=== PATIENT | female | born 1965 | race Caucasian/White ===

== ENCOUNTER → 2017-03-04 | Outpatient (CLI) | payer BC ==
[~2017-03-04] MED LIST: ALLEGRA180 MG PO; AMITIZA8 MCG PO; AMOXICILLIN500 MG PO; AUGMENTIN 875875 MG PO; CIPROFLOXACIN500 MG PO; CORDROL20 MG PO; DARVOCET N 1001 TAB PO; DIFLUCAN150 MG PO; ERGOCALCIFER50000 IU PO; FLAGYL500 MG; FLUTICASON0.05 MG/AC NAS; HYDROCHLOROTHIA25 MG PO; HYDROCODONE BIT1 T11 PO; KETOROLAC10 MG PO; LEXAPRO10 MG PO; LEXAPRO5 MG; MACROBID100 M1 PO; MICROZIDE12.5 MG; MOTRIN800 MG PO; Motrin,Rufen800 MG PO; NAPROSYN500 MG PO; NORCO 5-325 TA1 EACH PO; NORTRIPTYLINE10 MG PO; OSCAL/D,OYSTER250 MG PO; PERCOCET 325 MG1 TA2 PO; PERCOCET 325 MG1 TA5 PO; POTASS CHL20 MEQ/15 PO; PRILOSEC10 MG; PRILOSEC20 M1 PO; PROCTOFOAM-HC 110 G1 PO; TRAZADONE HYDR100 MG PO; VICODIN 5/500 505 MG PO; VICODIN ES 7501 TAB PO; ZESTRIL2.5 MG PO
== END | disposition home or self-care (01) ==
LOC: MAMMO 08:49
DX: R92.8 Other abnormal and inconclusive findings on diagnostic imaging of breast (principal)

== ENCOUNTER → 2017-08-21 | Outpatient (CLI) | payer BC ==
[2017-08-21 08:11] LABS: BASO % 0.4 % (0.0-1.0); EOS # 0.2 10*3/uL (0.0-0.4); EOS % 2.9 % (1.0-4.0); HEMATOCRIT 42.7 % (37.0-47.0); HEMOGLOBIN 13.5 g/dl (12.0-16.0); LYMPH # 2.7 10*3/uL (1.3-4.4); LYMPH % 34.6 % (27.0-41.0); MEAN CELL VOLUME 88.6 fl (81.0-99.0); MEAN CORPUSCULAR HGB CONC 31.6 g/dl (33.0-37.0); MEAN PLATELET VOLUME 10.5 fl (9.6-12.3); MONO # 0.7 10*3/uL (0.1-1.0); MONO % 8.3 % (3.0-9.0); NEUT # 4.2 10*3/uL (2.3-7.9); NEUT % 53.3 % (47.0-73.0); PLATELET COUNT AUTOMATED 244 10*3/uL (130-400); RED BLOOD COUNT 4.82 10*6/uL (4.10-5.10); RED CELL DISTRI WIDTH 13.9 % (0-14.5); WHITE BLOOD COUNT 7.8 10*3/uL (4.8-10.8)
[2017-08-21 08:37] LABS: ALBUMIN 3.6 gm/dl (3.1-4.5); ALKALINE PHOSPHATASE 116 U/L (45-117); BUN 11 mg/dl (7-24); CHLORIDE 104 mmol/L (98-107); CHOLESTEROL 225 mg/dL (<200); CREATININE 0.76 mg/dL (0.55-1.02); HDL CHOLESTEROL 58 mg/dl (40-60); LDL CHOLESTEROL 132 mg/dL (9-159); POTASSIUM 3.7 mmol/L (3.5-5.1); SGOT/AST 18 IU/L (3-35); SGPT/ALT 22 U/L (12-78); SODIUM 141 mmol/L (136-145); TOTAL PROTEIN 7.2 gm/dL (6.4-8.2); TRIGLYCERIDES 174 mg/dl (<150); VLDL CHOLESTEROL 35 mg/dL (6-40)
== END | disposition home or self-care (01) ==
LOC: LAB 07:48
PROVIDERS: Nurse Practitioner Primary Care
DX: E78.00 Pure hypercholesterolemia, unspecified (principal); E55.9 Vitamin D deficiency, unspecified; I10 Essential (primary) hypertension

== ENCOUNTER 2018-06-23 08:34 | Emergency (ER) | payer BC ==
[~2018-06-23] VITALS: Ht 157.4 cm; Wt 99.8 kg
[2018-06-23] MEDS ORDERED: PREDNISONE10 MG PO (11:38)
[2018-06-23] MEDS ORDERED: PEPCID20 MG PO (11:38)
== END 2018-06-23 11:42 | disposition home or self-care (01) ==
LOC: ED 08:34
DX: T78.2XXA Anaphylactic shock, unspecified, initial encounter (principal); J30.81 Allergic rhinitis due to animal (cat) (dog) hair and dander; Z90.710 Acquired absence of both cervix and uterus; Z88.1 Allergy status to other antibiotic agents; Z88.2 Allergy status to sulfonamides; Z88.8 Allergy status to other drugs, medicaments and biological substances; Z79.899 Other long term (current) drug therapy; Z90.49 Acquired absence of other specified parts of digestive tract

== ENCOUNTER 2018-11-28 05:43 | Emergency (ER) | payer BC ==
[~2018-11-28] VITALS: Ht 157.4 cm; Wt 97.5 kg
[~2018-11-28 05:43] MED LIST changes: +PEPCID20 MG PO; +PREDNISONE10 MG PO
[2018-11-28] MEDS ORDERED: TYLENOL325 M1 PO (07:17)
[2018-11-28] MEDS ORDERED: NAPROSYN500 MG PO (07:17)
== END 2018-11-28 07:36 | disposition home or self-care (01) ==
LOC: ED 05:43
DX: M25.511 Pain in right shoulder (principal); M19.90 Unspecified osteoarthritis, unspecified site; Z88.1 Allergy status to other antibiotic agents; Z88.2 Allergy status to sulfonamides; Z88.8 Allergy status to other drugs, medicaments and biological substances; Z79.899 Other long term (current) drug therapy; X58.XXXA Exposure to other specified factors, initial encounter; Y93.89 Activity, other specified; Y92.89 Other specified places as the place of occurrence of the external cause; Y99.0 Civilian activity done for income or pay

== ENCOUNTER → 2019-01-12 | Outpatient (CLI) | payer BC ==
[~2019-01-12] MED LIST changes: +TYLENOL325 M1 PO
== END | disposition home or self-care (01) ==
LOC: RESCLI 02:20
DX: E55.9 Vitamin D deficiency, unspecified (principal); I10 Essential (primary) hypertension; F32.89 Other specified depressive episodes; J30.1 Allergic rhinitis due to pollen; K59.00 Constipation, unspecified; E78.5 Hyperlipidemia, unspecified; K21.9 Gastro-esophageal reflux disease without esophagitis; G44.209 Tension-type headache, unspecified, not intractable; J32.9 Chronic sinusitis, unspecified; Z79.899 Other long term (current) drug therapy

== ENCOUNTER → 2019-02-18 | Outpatient (CLI) | payer BC | END | disposition home or self-care (01) | LOC: RESCLI 00:28 | DX: I10 Essential (primary) hypertension (principal); F32.89 Other specified depressive episodes; E55.9 Vitamin D deficiency, unspecified; E78.5 Hyperlipidemia, unspecified; K21.9 Gastro-esophageal reflux disease without esophagitis; J45.909 Unspecified asthma, uncomplicated; G44.209 Tension-type headache, unspecified, not intractable; Z79.899 Other long term (current) drug therapy; Z88.8 Allergy status to other drugs, medicaments and biological substances; Z90.89 Acquired absence of other organs; Z90.49 Acquired absence of other specified parts of digestive tract ==

== ENCOUNTER → 2019-04-28 | Outpatient (CLI) | payer BC ==
[2019-04-28 19:32] LABS: BASO % 0.2 % (0.0-1.0); EOS # 0.2 10*3/uL (0.0-0.4); EOS % 1.7 % (1.0-4.0); HEMATOCRIT 45.3 % (37.0-47.0); HEMOGLOBIN 14.4 g/dl (12.0-16.0); LYMPH # 3.1 10*3/uL (1.3-4.4); LYMPH % 32.1 % (27.0-41.0); MEAN CELL VOLUME 90.4 fl (81.0-99.0); MEAN CORPUSCULAR HGB 28.7 pg (27.0-31.0); MEAN CORPUSCULAR HGB CONC 31.8 g/dl (33.0-37.0); MEAN PLATELET VOLUME 11.4 fl (9.6-12.3); MONO # 0.7 10*3/uL (0.1-1.0); MONO % 7.2 % (3.0-9.0); NEUT # 5.6 10*3/uL (2.3-7.9); NEUT % 58.6 % (47.0-73.0); PLATELET COUNT AUTOMATED 221 10*3/uL (130-400); RED BLOOD COUNT 5.01 10*6/uL (4.10-5.10); RED CELL DISTRI WIDTH 14.2 % (0-14.5); WHITE BLOOD COUNT 9.5 10*3/uL (4.8-10.8)
[2019-04-28 20:00] LABS: ALKALINE PHOSPHATASE 131 U/L (45-117); BUN 24 mg/dl (7-24); CHLORIDE 104 mmol/L (98-107); CHOLESTEROL 168 mg/dL (<200); HDL CHOLESTEROL 76 mg/dl (40-60); LDL CHOLESTEROL 68 mg/dL (9-159); POTASSIUM 3.6 mmol/L (3.5-5.1); SGOT/AST 21 IU/L (3-35); SGPT/ALT 30 U/L (12-78); SODIUM 141 mmol/L (136-145); TOTAL PROTEIN 7.8 gm/dL (6.4-8.2); TRIGLYCERIDES 118 mg/dl (<150); VLDL CHOLESTEROL 24 mg/dL (6-40)
== END | disposition home or self-care (01) ==
LOC: RESCLI 00:49
PROVIDERS: Hospitalist
DX: Z12.39 Encounter for other screening for malignant neoplasm of breast (principal); Z12.11 Encounter for screening for malignant neoplasm of colon; I10 Essential (primary) hypertension; F32.89 Other specified depressive episodes; E55.9 Vitamin D deficiency, unspecified; E78.5 Hyperlipidemia, unspecified; K21.9 Gastro-esophageal reflux disease without esophagitis; J45.909 Unspecified asthma, uncomplicated; G44.209 Tension-type headache, unspecified, not intractable; F17.200 Nicotine dependence, unspecified, uncomplicated; M19.90 Unspecified osteoarthritis, unspecified site; R74.8 Abnormal levels of other serum enzymes; Z79.899 Other long term (current) drug therapy; Z90.49 Acquired absence of other specified parts of digestive tract; Z90.89 Acquired absence of other organs; Z90.710 Acquired absence of both cervix and uterus; Z88.8 Allergy status to other drugs, medicaments and biological substances

== ENCOUNTER → 2019-05-06 | Outpatient (CLI) | payer BC | END | disposition home or self-care (01) | LOC: CT 08:29 | DX: R74.8 Abnormal levels of other serum enzymes (principal) ==

== ENCOUNTER → 2019-05-27 | Outpatient (CLI) | payer BC | END | disposition home or self-care (01) | LOC: RESCLI 00:36 | DX: J40 Bronchitis, not specified as acute or chronic (principal); I10 Essential (primary) hypertension; Z90.89 Acquired absence of other organs; Z90.49 Acquired absence of other specified parts of digestive tract; Z88.8 Allergy status to other drugs, medicaments and biological substances; Z79.899 Other long term (current) drug therapy ==

== ENCOUNTER → 2019-11-29 | Outpatient (CLI) | payer BC | END | disposition home or self-care (01) | LOC: RESCLI 00:58 | PROVIDERS: ATTEND Internal Medicine | DX: I10 Essential (primary) hypertension (principal); K59.00 Constipation, unspecified; E78.5 Hyperlipidemia, unspecified; J45.909 Unspecified asthma, uncomplicated; F32.89 Other specified depressive episodes; K21.9 Gastro-esophageal reflux disease without esophagitis; M19.90 Unspecified osteoarthritis, unspecified site; D22.9 Melanocytic nevi, unspecified; E07.9 Disorder of thyroid, unspecified; F17.220 Nicotine dependence, chewing tobacco, uncomplicated; Z12.31 Encounter for screening mammogram for malignant neoplasm of breast; Z79.899 Other long term (current) drug therapy; Z90.710 Acquired absence of both cervix and uterus; Z90.49 Acquired absence of other specified parts of digestive tract; Z98.890 Other specified postprocedural states ==

== ENCOUNTER → 2019-12-20 | Outpatient (CLI) | payer BC | END | disposition home or self-care (01) | LOC: MAMMO 15:53 | PROVIDERS: ATTEND Internal Medicine | DX: Z12.31 Encounter for screening mammogram for malignant neoplasm of breast (principal) ==

== ENCOUNTER 2020-01-01 12:00 | Emergency (ER) | payer BC ==
[~2020-01-01] VITALS: Ht 157.4 cm; Wt 102.1 kg
[2020-01-01] MEDS ORDERED: TESSALON PERLE100 MG PO (12:45)
[2020-01-01] MEDS ORDERED: FLONASE ALLERG9.9 ML NAS (12:45)
== END 2020-01-01 12:49 | disposition home or self-care (01) ==
LOC: ED 12:00
DX: J06.9 Acute upper respiratory infection, unspecified (principal); Z20.828 Contact with and (suspected) exposure to other viral communicable diseases; Z88.8 Allergy status to other drugs, medicaments and biological substances; Z88.2 Allergy status to sulfonamides; Z79.899 Other long term (current) drug therapy; Z79.2 Long term (current) use of antibiotics

== ENCOUNTER → 2020-01-11 | Outpatient (CLI) | payer BC ==
[~2020-01-11] MED LIST changes: +FLONASE ALLERG9.9 ML NAS; +HYDROCHLOROTHIA25 M1 PO; +LEXAPRO20 MG PO; +PROAIR HFA8.5 GM INH; +TESSALON PERLE100 MG PO
== END | disposition home or self-care (01) ==
LOC: COVID19 00:12
PROVIDERS: ATTEND Surgery
DX: Z01.812 Encounter for preprocedural laboratory examination (principal); Z20.828 Contact with and (suspected) exposure to other viral communicable diseases

== ENCOUNTER 2020-01-16 21:07 | Emergency (ER) | payer BC ==
[~2020-01-16] VITALS: Ht 157.4 cm; Wt 102.1 kg
[2020-01-16 22:26] LABS: BASO % 0.2 % (0.0-1.0); HEMATOCRIT 44.1 % (37.0-47.0); LYMPH # 1.2 10*3/uL (1.3-4.4); LYMPH % 9.6 % (27.0-41.0); MEAN CELL VOLUME 86.8 fl (81.0-99.0); MEAN CORPUSCULAR HGB 28.3 pg (27.0-31.0); MEAN CORPUSCULAR HGB CONC 32.7 g/dl (33.0-37.0); MEAN PLATELET VOLUME 10.1 fl (9.6-12.3); MONO # 0.4 10*3/uL (0.1-1.0); MONO % 3.1 % (3.0-9.0); NEUT # 10.9 10*3/uL (2.3-7.9); NEUT % 86.8 % (47.0-73.0); PLATELET COUNT AUTOMATED 246 10*3/uL (130-400); RED BLOOD COUNT 5.08 10*6/uL (4.10-5.10); RED CELL DISTRI WIDTH 13.4 % (0-14.5); WHITE BLOOD COUNT 12.5 10*3/uL (4.8-10.8)
[2020-01-16 22:39] LABS: ALBUMIN 3.7 gm/dl (3.1-4.5); ALKALINE PHOSPHATASE 131 U/L (45-117); BUN 11 mg/dl (7-24); CHLORIDE 106 mmol/L (98-107); CREATININE 0.62 mg/dL (0.55-1.02); LIPASE 46 U/L (73-393); POTASSIUM 3.4 mmol/L (3.5-5.1); SGOT/AST 18 IU/L (3-35); SGPT/ALT 23 U/L (12-78); SODIUM 140 mmol/L (136-145); TOTAL PROTEIN 7.8 gm/dL (6.4-8.2)
== END 2020-01-17 01:45 | disposition home or self-care (01) ==
LOC: ED 21:07
PROVIDERS: Nurse Practitioner Family
DX: R11.2 Nausea with vomiting, unspecified (principal); R68.83 Chills (without fever); Z88.1 Allergy status to other antibiotic agents; Z88.2 Allergy status to sulfonamides; Z88.8 Allergy status to other drugs, medicaments and biological substances; Z79.899 Other long term (current) drug therapy

== ENCOUNTER → 2020-01-16 | Day surgery (SDC) | payer BC ==
[~2020-01-16] VITALS: Ht 157.4 cm; Wt 104.3 kg
[2020-01-16 07:48] VITALS: BP 189/93
[2020-01-16 09:00] VITALS: BP 147/88
[2020-01-16 09:15] VITALS: BP 149/84
[2020-01-16 09:30] VITALS: BP 152/82
== END | disposition home or self-care (01) ==
LOC: SDC 01-12 08:45
PROVIDERS: ATTEND Surgery
DX: Z12.11 Encounter for screening for malignant neoplasm of colon (principal); K21.9 Gastro-esophageal reflux disease without esophagitis; K29.50 Unspecified chronic gastritis without bleeding; K63.5 Polyp of colon; I10 Essential (primary) hypertension; J45.909 Unspecified asthma, uncomplicated; F32.9 Major depressive disorder, single episode, unspecified; Z88.8 Allergy status to other drugs, medicaments and biological substances; Z98.890 Other specified postprocedural states; Z79.899 Other long term (current) drug therapy; Z88.2 Allergy status to sulfonamides; Z98.51 Tubal ligation status

== ENCOUNTER → 2020-03-13 | Outpatient (CLI) | payer BC | END | disposition home or self-care (01) | LOC: RESCLI 00:42 | PROVIDERS: ATTEND Internal Medicine | DX: G43.109 Migraine with aura, not intractable, without status migrainosus (principal); I10 Essential (primary) hypertension; E78.5 Hyperlipidemia, unspecified; F32.89 Other specified depressive episodes; G44.209 Tension-type headache, unspecified, not intractable; J45.909 Unspecified asthma, uncomplicated; F17.220 Nicotine dependence, chewing tobacco, uncomplicated; E55.9 Vitamin D deficiency, unspecified; K21.00 Gastro-esophageal reflux disease with esophagitis, without bleeding; E07.89 Other specified disorders of thyroid; K59.00 Constipation, unspecified; M81.0 Age-related osteoporosis without current pathological fracture; F17.210 Nicotine dependence, cigarettes, uncomplicated; Z71.6 Tobacco abuse counseling; Z79.899 Other long term (current) drug therapy; Z98.890 Other specified postprocedural states; Z88.8 Allergy status to other drugs, medicaments and biological substances ==

== ENCOUNTER → 2020-06-01 | Outpatient (CLI) | payer BC | END | disposition home or self-care (01) | LOC: RESCLI 02:22 | PROVIDERS: ATTEND Internal Medicine | DX: M19.90 Unspecified osteoarthritis, unspecified site (principal); A04.8 Other specified bacterial intestinal infections; I10 Essential (primary) hypertension; E66.01 Morbid (severe) obesity due to excess calories; F17.210 Nicotine dependence, cigarettes, uncomplicated; Z79.899 Other long term (current) drug therapy; Z88.8 Allergy status to other drugs, medicaments and biological substances; Z90.49 Acquired absence of other specified parts of digestive tract; Z98.890 Other specified postprocedural states ==

== ENCOUNTER → 2020-06-02 | Outpatient (CLI) | payer BC | END | disposition home or self-care (01) | LOC: LAB 08:23 | PROVIDERS: ATTEND Internal Medicine | DX: E66.01 Morbid (severe) obesity due to excess calories (principal) ==

== ENCOUNTER → 2020-09-04 | Outpatient (CLI) | payer BC | END | disposition home or self-care (01) | LOC: RESCLI 00:59 | PROVIDERS: ATTEND Hospitalist | DX: I10 Essential (primary) hypertension (principal); F32.89 Other specified depressive episodes; E78.5 Hyperlipidemia, unspecified; G44.209 Tension-type headache, unspecified, not intractable; J45.909 Unspecified asthma, uncomplicated; E55.9 Vitamin D deficiency, unspecified; K21.00 Gastro-esophageal reflux disease with esophagitis, without bleeding; K59.00 Constipation, unspecified; R40.0 Somnolence; R60.0 Localized edema; G47.00 Insomnia, unspecified; F17.220 Nicotine dependence, chewing tobacco, uncomplicated; Z71.6 Tobacco abuse counseling; Z88.8 Allergy status to other drugs, medicaments and biological substances; Z79.899 Other long term (current) drug therapy; Z90.49 Acquired absence of other specified parts of digestive tract; Z98.890 Other specified postprocedural states; Z90.710 Acquired absence of both cervix and uterus ==

== ENCOUNTER 2020-09-07 12:36 | Emergency (ER) | payer BC ==
[~2020-09-07] VITALS: Ht 157.4 cm; Wt 99.8 kg
== END 2020-09-07 13:26 | disposition home or self-care (01) ==
LOC: ED 12:36
DX: I10 Essential (primary) hypertension (principal); R51.9 Headache, unspecified; H92.03 Otalgia, bilateral; E78.00 Pure hypercholesterolemia, unspecified; Z88.8 Allergy status to other drugs, medicaments and biological substances; Z88.2 Allergy status to sulfonamides; Z88.1 Allergy status to other antibiotic agents; Z79.899 Other long term (current) drug therapy; Z98.51 Tubal ligation status; Z90.49 Acquired absence of other specified parts of digestive tract; Z98.890 Other specified postprocedural states

== ENCOUNTER → 2020-12-12 | Outpatient (CLI) | payer BC ==
[~2020-12-12] MED LIST changes: +ALLEGRA ALLERG180 M2 PO; +ATORVASTATIN CA10 M1 PO; +BUSPIRONE HCL30 MG PO; +KLOR-CON M2020 ME1 PO; +LASIX40 MG PO; +LOSARTAN POTASS50 M1 PO; +MELOXICAM15 MG PO; +TRAZODONE50 MG PO
== END | disposition home or self-care (01) ==
LOC: RESCLI 02:39
PROVIDERS: ATTEND Internal Medicine Nephrology
DX: I10 Essential (primary) hypertension (principal); E55.9 Vitamin D deficiency, unspecified; F32.89 Other specified depressive episodes; F51.01 Primary insomnia; J45.909 Unspecified asthma, uncomplicated; R40.0 Somnolence; K59.00 Constipation, unspecified; E78.5 Hyperlipidemia, unspecified; R53.83 Other fatigue; K21.9 Gastro-esophageal reflux disease without esophagitis; Z79.2 Long term (current) use of antibiotics; Z79.899 Other long term (current) drug therapy

== ENCOUNTER 2020-12-14 21:03 | Emergency (ER) | payer OTHER, BC ==
[~2020-12-14] VITALS: Ht 157.4 cm; Wt 99.8 kg
[~2020-12-14 21:03] MED LIST changes: -ALLEGRA ALLERG180 M2 PO; -ATORVASTATIN CA10 M1 PO; -BUSPIRONE HCL30 MG PO; -KLOR-CON M2020 ME1 PO; -LASIX40 MG PO; -LOSARTAN POTASS50 M1 PO; -MELOXICAM15 MG PO; -TRAZODONE50 MG PO
[2020-12-14] MEDS ORDERED: MELOXICAM15 MG PO (21:32)
[2020-12-14] MEDS ORDERED: ATORVASTATIN CA10 M1 PO (21:33)
[2020-12-14] MEDS ORDERED: LOSARTAN POTASS50 M1 PO (21:33)
[2020-12-14] MEDS ORDERED: LASIX40 MG PO (21:34)
[2020-12-14] MEDS ORDERED: KLOR-CON M2020 ME1 PO (21:34)
[2020-12-14] MEDS ORDERED: BUSPIRONE HCL30 MG PO (21:34)
[2020-12-14] MEDS ORDERED: ALLEGRA ALLERG180 M2 PO (21:35)
[2020-12-14] MEDS ORDERED: TRAZODONE50 MG PO (21:35)
== END 2020-12-15 00:19 | disposition left against medical advice (07) ==
LOC: ED 21:03
DX: M54.9 Dorsalgia, unspecified (principal); M54.2 Cervicalgia; Z53.21 Procedure and treatment not carried out due to patient leaving prior to being seen by health care provider; V89.2XXA Person injured in unspecified motor-vehicle accident, traffic, initial encounter; Y93.89 Activity, other specified; Y92.89 Other specified places as the place of occurrence of the external cause; Y99.8 Other external cause status

== ENCOUNTER → 2020-12-22 | Outpatient (CLI) | payer BC ==
[~2020-12-22] MED LIST changes: +ALLEGRA ALLERG180 M2 PO; +ATORVASTATIN CA10 M1 PO; +BUSPIRONE HCL30 MG PO; +KLOR-CON M2020 ME1 PO; +LASIX40 MG PO; +LOSARTAN POTASS50 M1 PO; +MELOXICAM15 MG PO; +TRAZODONE50 MG PO
[2020-12-22 08:22] LABS: BASO % 0.3 % (0.0-1.0); EOS # 0.3 10*3/uL (0.0-0.4); EOS % 3.7 % (1.0-4.0); HEMATOCRIT 44.1 % (37.0-47.0); LYMPH # 2.1 10*3/uL (1.3-4.4); LYMPH % 27.2 % (27.0-41.0); MEAN CELL VOLUME 90.2 fl (81.0-99.0); MEAN CORPUSCULAR HGB 28.8 pg (27.0-31.0); MEAN PLATELET VOLUME 9.9 fl (9.6-12.3); MONO # 0.6 10*3/uL (0.1-1.0); MONO % 7.8 % (3.0-9.0); NEUT # 4.7 10*3/uL (2.3-7.9); NEUT % 60.7 % (47.0-73.0); PLATELET COUNT AUTOMATED 206 10*3/uL (130-400); RED BLOOD COUNT 4.89 10*6/uL (4.10-5.10); RED CELL DISTRI WIDTH 13.7 % (0-14.5); WHITE BLOOD COUNT 7.8 10*3/uL (4.8-10.8)
[2020-12-22 08:50] LABS: ALBUMIN 3.4 gm/dl (3.1-4.5); ALKALINE PHOSPHATASE 133 U/L (45-117); BUN 20 mg/dl (7-24); CHLORIDE 106 mmol/L (98-107); CHOLESTEROL 162 mg/dL (<200); CREATININE 0.71 mg/dL (0.55-1.02); LDL CHOLESTEROL 67 mg/dL (9-159); SGOT/AST 19 IU/L (3-35); SGPT/ALT 25 U/L (12-78); SODIUM 140 mmol/L (136-145); TOTAL PROTEIN 7.2 gm/dL (6.4-8.2); TRIGLYCERIDES 141 mg/dl (<150)
[2020-12-22 09:14] LABS: VITAMIN D, 25-HYDROXY 66.7 ng/mL (30-100)
== END | disposition home or self-care (01) ==
LOC: LAB 07:59
PROVIDERS: ATTEND Internal Medicine Nephrology
DX: I10 Essential (primary) hypertension (principal); E55.9 Vitamin D deficiency, unspecified; E78.5 Hyperlipidemia, unspecified; R53.83 Other fatigue

== ENCOUNTER → 2021-03-27 | Outpatient (CLI) | payer BC | END | disposition home or self-care (01) | LOC: RESCLI 01:12 | PROVIDERS: ATTEND Internal Medicine Nephrology | DX: G43.109 Migraine with aura, not intractable, without status migrainosus (principal); Z79.899 Other long term (current) drug therapy ==

== ENCOUNTER → 2021-04-08 | Outpatient (CLI) | payer BC | END | disposition home or self-care (01) | LOC: COVID19 15:44 | PROVIDERS: ATTEND Internal Medicine | DX: U07.1 COVID-19 (principal) ==

== ENCOUNTER → 2021-04-24 | Outpatient (CLI) | payer BC | END | disposition home or self-care (01) | LOC: RESCLI 01:56 | PROVIDERS: ATTEND Internal Medicine Nephrology | DX: G43.109 Migraine with aura, not intractable, without status migrainosus (principal); I10 Essential (primary) hypertension; J45.909 Unspecified asthma, uncomplicated; M19.90 Unspecified osteoarthritis, unspecified site; J30.2 Other seasonal allergic rhinitis; F32.89 Other specified depressive episodes; E55.9 Vitamin D deficiency, unspecified; F17.220 Nicotine dependence, chewing tobacco, uncomplicated; R60.0 Localized edema; G47.00 Insomnia, unspecified; E78.5 Hyperlipidemia, unspecified; K21.9 Gastro-esophageal reflux disease without esophagitis; G47.30 Sleep apnea, unspecified; Z71.6 Tobacco abuse counseling; Z88.8 Allergy status to other drugs, medicaments and biological substances; Z88.1 Allergy status to other antibiotic agents; F17.200 Nicotine dependence, unspecified, uncomplicated; Z90.49 Acquired absence of other specified parts of digestive tract; Z98.890 Other specified postprocedural states; Z79.899 Other long term (current) drug therapy; Z86.16 Personal history of COVID-19 ==

== ENCOUNTER → 2021-05-06 | Outpatient (CLI) | payer BC ==
[2021-05-06 16:07] LABS: ALBUMIN 3.6 gm/dl (3.1-4.5); ALKALINE PHOSPHATASE 134 U/L (45-117); BUN 27 mg/dl (7-24); CHLORIDE 108 mmol/L (98-107); CREATININE 0.83 mg/dL (0.55-1.02); SGOT/AST 23 IU/L (3-35); SGPT/ALT 25 U/L (12-78); SODIUM 142 mmol/L (136-145); TOTAL PROTEIN 7.3 gm/dL (6.4-8.2)
== END | disposition home or self-care (01) ==
LOC: LAB 14:56
PROVIDERS: Hospitalist; ATTEND Internal Medicine Nephrology
DX: I10 Essential (primary) hypertension (principal)

== ENCOUNTER → 2021-08-21 | Outpatient (CLI) | payer BC | END | disposition home or self-care (01) | LOC: RESCLI 01:58 | PROVIDERS: ATTEND Internal Medicine Nephrology | DX: R60.0 Localized edema (principal); Z79.899 Other long term (current) drug therapy ==

== ENCOUNTER → 2021-09-25 | Outpatient (CLI) | payer BC | END | disposition home or self-care (01) | LOC: RESCLI 02:31 | PROVIDERS: ATTEND Internal Medicine Nephrology | DX: R60.0 Localized edema (principal); I10 Essential (primary) hypertension; E55.9 Vitamin D deficiency, unspecified; F32.89 Other specified depressive episodes; K21.9 Gastro-esophageal reflux disease without esophagitis; E78.5 Hyperlipidemia, unspecified; J45.909 Unspecified asthma, uncomplicated; M19.90 Unspecified osteoarthritis, unspecified site; F17.220 Nicotine dependence, chewing tobacco, uncomplicated; Z71.6 Tobacco abuse counseling; G47.30 Sleep apnea, unspecified; G47.00 Insomnia, unspecified; E53.8 Deficiency of other specified B group vitamins; G43.109 Migraine with aura, not intractable, without status migrainosus; J30.2 Other seasonal allergic rhinitis; M72.2 Plantar fascial fibromatosis; Z79.899 Other long term (current) drug therapy; Z88.8 Allergy status to other drugs, medicaments and biological substances; Z90.710 Acquired absence of both cervix and uterus ==

== ENCOUNTER → 2021-11-06 | Outpatient (CLI) | payer BC | END | disposition home or self-care (01) | LOC: CARD 00:04 | PROVIDERS: ATTEND Hospitalist | DX: R60.0 Localized edema (principal) ==

== ENCOUNTER → 2021-11-21 | Outpatient (CLI) | payer BC | END | disposition home or self-care (01) | LOC: RESCLI 00:20 | PROVIDERS: ATTEND Internal Medicine | DX: G43.109 Migraine with aura, not intractable, without status migrainosus (principal); Z12.31 Encounter for screening mammogram for malignant neoplasm of breast; I10 Essential (primary) hypertension; Z79.899 Other long term (current) drug therapy; Z88.8 Allergy status to other drugs, medicaments and biological substances; Z90.49 Acquired absence of other specified parts of digestive tract ==

== ENCOUNTER → 2021-12-10 | Outpatient (CLI) | payer BC | END | disposition home or self-care (01) | LOC: MAMMO 14:30 | PROVIDERS: ATTEND Internal Medicine | DX: Z12.31 Encounter for screening mammogram for malignant neoplasm of breast (principal) ==

== ENCOUNTER 2022-01-09 10:15 | Emergency (ER) | payer BC ==
[~2022-01-09] VITALS: Ht 157.4 cm; Wt 104.3 kg
[2022-01-09] MEDS ORDERED: CEPHALEXIN500 M1 PO (11:45)
== END 2022-01-09 12:00 | disposition home or self-care (01) ==
LOC: ED 10:15
DX: L03.211 Cellulitis of face (principal); L02.01 Cutaneous abscess of face; Z98.51 Tubal ligation status; Z90.49 Acquired absence of other specified parts of digestive tract; Z79.899 Other long term (current) drug therapy; Z88.2 Allergy status to sulfonamides; Z88.1 Allergy status to other antibiotic agents

== ENCOUNTER → 2022-04-21 | Outpatient (CLI) | payer BC ==
[~2022-04-21] MED LIST changes: +CEPHALEXIN500 M1 PO
[2022-04-24 13:06] LABS: ALTERNARIA ALTERNATA, IGE <0.10 kU/L (Class 0); AMERICAN ELM, IGE <0.10 kU/L (Class 0); ASPERGILLUS FUMIGATU, IGE <0.10 kU/L (Class 0); BERMUDA GRASS, IGE <0.10 kU/L (Class 0); BIRCH, COMMON SILVER IGE <0.10 kU/L (Class 0); CLADOSPORIUM HERBARU, IGE <0.10 kU/L (Class 0); D FARINAE MITE 0.28 kU/L (Class 0/I); D PTERONYSSINUS 0.28 kU/L (Class 0/I); DOG DANDER, IGE <0.10 kU/L (Class 0); MAPLE LEAF SYCAMORE, IGE <0.10 kU/L (Class 0); MAPLE/BOX ELDER, IGE 0.11 kU/L (Class 0/I); MOUSE URINE IGE <0.10 kU/L (Class 0); PENICILLIUM CHRYSOGENUM, IGE <0.10 kU/L (Class 0); ROUGH PIGWEED, IGE <0.10 kU/L (Class 0); SHEEP SORREL (DOCK), IGE <0.10 kU/L (Class 0); SHORT RAGWEED, IGE <0.10 kU/L (Class 0); TIMOTHY, IGE <0.10 kU/L (Class 0); WALNUT TREE, IGE <0.10 kU/L (Class 0); WHITE ASH, IGE <0.10 kU/L (Class 0); WHITE MULBERRY, IGE <0.10 kU/L (Class 0); WHITE OAK, IGE <0.10 kU/L (Class 0)
[2022-04-25 07:06] LABS: CODFISH, IGE <0.10 kU/L (Class 0); EGG WHITE, IGE <0.10 kU/L (Class 0); MILK (COW), IGE 0.13 kU/L (Class 0/I); PEANUT, IGE <0.10 kU/L (Class 0); SOYBEAN, IGE <0.10 kU/L (Class 0); WHEAT, IGE <0.10 kU/L (Class 0)
== END | disposition home or self-care (01) ==
LOC: LAB 16:12
PROVIDERS: ATTEND Specialist
DX: J30.9 Allergic rhinitis, unspecified (principal)

== ENCOUNTER → 2022-04-24 | Outpatient (CLI) | payer BC | END | disposition home or self-care (01) | LOC: CT 00:45 | PROVIDERS: ATTEND Specialist | DX: J34.2 Deviated nasal septum (principal) ==

== ENCOUNTER → 2022-05-12 | Outpatient (CLI) | payer BC | END | disposition home or self-care (01) | LOC: RESCLI 04:40 | PROVIDERS: ATTEND Internal Medicine | DX: Z00.00 Encounter for general adult medical examination without abnormal findings (principal); I10 Essential (primary) hypertension; F32.89 Other specified depressive episodes; G43.109 Migraine with aura, not intractable, without status migrainosus; K59.00 Constipation, unspecified; E53.8 Deficiency of other specified B group vitamins; J30.1 Allergic rhinitis due to pollen; R60.0 Localized edema; G47.00 Insomnia, unspecified; M19.90 Unspecified osteoarthritis, unspecified site; E78.5 Hyperlipidemia, unspecified; E55.9 Vitamin D deficiency, unspecified; K21.9 Gastro-esophageal reflux disease without esophagitis; J32.9 Chronic sinusitis, unspecified; M81.0 Age-related osteoporosis without current pathological fracture; Z79.899 Other long term (current) drug therapy; Z86.16 Personal history of COVID-19; Z98.890 Other specified postprocedural states; Z90.710 Acquired absence of both cervix and uterus; Z82.49 Family history of ischemic heart disease and other diseases of the circulatory system; Z88.1 Allergy status to other antibiotic agents; Z88.8 Allergy status to other drugs, medicaments and biological substances ==

== ENCOUNTER → 2022-05-16 | Outpatient (CLI) | payer BC ==
[2022-05-16 07:43] LABS: BASO % 0.3 % (0.0-1.0); EOS # 0.3 10*3/uL (0.0-0.4); LYMPH # 1.6 10*3/uL (1.3-4.4); LYMPH % 21.6 % (27.0-41.0); MEAN CELL VOLUME 90.4 fl (81.0-99.0); MEAN CORPUSCULAR HGB 28.5 pg (27.0-31.0); MEAN CORPUSCULAR HGB CONC 31.5 g/dl (33.0-37.0); MEAN PLATELET VOLUME 9.9 fl (9.6-12.3); MONO # 0.6 10*3/uL (0.1-1.0); MONO % 7.4 % (3.0-9.0); NEUT # 4.9 10*3/uL (2.3-7.9); NEUT % 66.4 % (47.0-73.0); PLATELET COUNT AUTOMATED 240 10*3/uL (130-400); RED CELL DISTRI WIDTH 14.3 % (0-14.5); WHITE BLOOD COUNT 7.4 10*3/uL (4.8-10.8)
[2022-05-16 08:00] LABS: ALKALINE PHOSPHATASE 116 U/L (46-116); BUN 17 mg/dl (9-23); CHLORIDE 104 mmol/L (98-107); CHOLESTEROL 155 mg/dL (<200); LDL CHOLESTEROL 63 mg/dL (9-159); POTASSIUM 4.4 mmol/L (3.4-5.1); SGPT/ALT 36 U/L (10-49); TOTAL PROTEIN 7.2 gm/dL (6.0-8.0); TRIGLYCERIDES 116 mg/dl (<150)
== END | disposition home or self-care (01) ==
LOC: LAB 07:17
PROVIDERS: Student in an Organized Health Care Education/Training Program; ATTEND Internal Medicine
DX: Z00.00 Encounter for general adult medical examination without abnormal findings (principal)

== ENCOUNTER → 2022-08-11 | Outpatient (CLI) | payer BC | END | disposition home or self-care (01) | LOC: RESCLI 01:35 | PROVIDERS: ATTEND Student in an Organized Health Care Education/Training Program | DX: I10 Essential (primary) hypertension (principal); G43.109 Migraine with aura, not intractable, without status migrainosus; K59.00 Constipation, unspecified; F32.89 Other specified depressive episodes; E53.8 Deficiency of other specified B group vitamins; Z78.9 Other specified health status; J45.909 Unspecified asthma, uncomplicated; E55.9 Vitamin D deficiency, unspecified; G47.00 Insomnia, unspecified; R60.0 Localized edema; E78.5 Hyperlipidemia, unspecified; M19.90 Unspecified osteoarthritis, unspecified site; Z82.49 Family history of ischemic heart disease and other diseases of the circulatory system; K21.9 Gastro-esophageal reflux disease without esophagitis; Z98.890 Other specified postprocedural states; Z88.8 Allergy status to other drugs, medicaments and biological substances; Z86.16 Personal history of COVID-19; Z79.899 Other long term (current) drug therapy ==

== ENCOUNTER → 2023-09-02 | Outpatient (CLI) | payer BC | END | disposition home or self-care (01) | LOC: RESCLI 02:50 | PROVIDERS: ATTEND Student in an Organized Health Care Education/Training Program | DX: M25.562 Pain in left knee (principal); G43.109 Migraine with aura, not intractable, without status migrainosus; K59.00 Constipation, unspecified; E53.8 Deficiency of other specified B group vitamins; J45.909 Unspecified asthma, uncomplicated; I10 Essential (primary) hypertension; J30.1 Allergic rhinitis due to pollen; K21.9 Gastro-esophageal reflux disease without esophagitis; F32.89 Other specified depressive episodes; R60.0 Localized edema; E55.9 Vitamin D deficiency, unspecified; E78.5 Hyperlipidemia, unspecified; M19.90 Unspecified osteoarthritis, unspecified site; J01.00 Acute maxillary sinusitis, unspecified; G47.00 Insomnia, unspecified; Z78.9 Other specified health status ==

== ENCOUNTER 2023-10-24 17:39 | Emergency (ER) | payer BC ==
[~2023-10-24] VITALS: Ht 157.4 cm; Wt 102.1 kg
[2023-10-24] MEDS ORDERED: Ketorolac Tromethamine 30 MG/ML VIAL IM ONE (17:55)
[2023-10-24] MEDS ORDERED: NAPROSYN500 MG PO (19:55)
== END 2023-10-24 21:11 | disposition home or self-care (01) ==
LOC: ED 17:39
DX: S80.01XA Contusion of right knee, initial encounter (principal); I10 Essential (primary) hypertension; K21.9 Gastro-esophageal reflux disease without esophagitis; E78.5 Hyperlipidemia, unspecified; Z88.8 Allergy status to other drugs, medicaments and biological substances; Z88.2 Allergy status to sulfonamides; Z88.1 Allergy status to other antibiotic agents; Z79.899 Other long term (current) drug therapy; Z90.49 Acquired absence of other specified parts of digestive tract; Z98.51 Tubal ligation status; Z98.890 Other specified postprocedural states; W18.39XA Other fall on same level, initial encounter; Y93.89 Activity, other specified; Y92.89 Other specified places as the place of occurrence of the external cause; Y99.8 Other external cause status

== ENCOUNTER → 2024-04-19 | Outpatient (CLI) | payer BC | END | disposition home or self-care (01) | LOC: RESCLI 12:25 | PROVIDERS: ATTEND Student in an Organized Health Care Education/Training Program | DX: J06.9 Acute upper respiratory infection, unspecified (principal); Z79.899 Other long term (current) drug therapy; Z98.890 Other specified postprocedural states; Z88.8 Allergy status to other drugs, medicaments and biological substances ==

== ENCOUNTER 2024-05-26 12:19 | Emergency (ER) | payer BC ==
[~2024-05-26] VITALS: Ht 157.4 cm; Wt 90.7 kg
[2024-05-26] MEDS ORDERED: methylPREDNISolone sod succ 1,000 MG/16 ML VIAL IM ONE (12:35)
[2024-05-26] MEDS ORDERED: methylPREDNISolone sod succ 125 MG VIAL IM ONE (12:40)
[2024-05-26] MEDS ORDERED: hydrOXYzine hydrochloride 50 MG/ML VIAL IM ONE (12:40)
[2024-05-26] MEDS ORDERED: FAMOTIDINE 20 MG TAB PO ONE (12:40)
[2024-05-26] MEDS ORDERED: HYDROXYZINE HCL25 MG PO (13:50)
[2024-05-26] MEDS ORDERED: PEPCID40 MG PO (13:50)
[2024-05-26] MEDS ORDERED: MEDROL DOSEPAK4 MG PO (13:50)
== END 2024-05-26 14:02 | disposition home or self-care (01) ==
LOC: ED 12:19
DX: T78.49XA Other allergy, initial encounter (principal); R21 Rash and other nonspecific skin eruption; I10 Essential (primary) hypertension; E78.5 Hyperlipidemia, unspecified; K21.9 Gastro-esophageal reflux disease without esophagitis; Z88.1 Allergy status to other antibiotic agents; Z88.2 Allergy status to sulfonamides; Z79.899 Other long term (current) drug therapy; Z90.49 Acquired absence of other specified parts of digestive tract; Z98.890 Other specified postprocedural states; X58.XXXA Exposure to other specified factors, initial encounter

== ENCOUNTER → 2024-08-06 | Outpatient (CLI) | payer BC ==
[~2024-08-06] MED LIST changes: +HYDROXYZINE HCL25 MG PO; +MEDROL DOSEPAK4 MG PO; +PEPCID40 MG PO
[2024-08-06 08:09] LABS: BASO % 0.3 % (0.0-1.0); EOS # 0.3 10*3/uL (0.0-0.4); EOS % 4.7 % (1.0-4.0); HEMATOCRIT 44.4 % (37.0-47.0); MEAN CELL VOLUME 92.1 fl (81.0-99.0); MEAN CORPUSCULAR HGB 29.3 pg (27.0-31.0); MEAN CORPUSCULAR HGB CONC 31.8 g/dl (33.0-37.0); MEAN PLATELET VOLUME 9.9 fl (9.6-12.3); MONO # 0.6 10*3/uL (0.1-1.0); MONO % 8.8 % (3.0-9.0); NEUT # 3.7 10*3/uL (2.3-7.9); NEUT % 57.6 % (47.0-73.0); PLATELET COUNT AUTOMATED 218 10*3/uL (130-400); RED BLOOD COUNT 4.82 10*6/uL (4.10-5.10); RED CELL DISTRI WIDTH 13.5 % (0-14.5); WHITE BLOOD COUNT 6.5 10*3/uL (4.8-10.8)
[2024-08-06 09:04] LABS: ALKALINE PHOSPHATASE 103 U/L (46-116); BUN 22 mg/dl (9-23); CHLORIDE 107 mmol/L (98-107); CHOLESTEROL 155 mg/dL (<200); LDL CHOLESTEROL 71 mg/dL (9-159); SGPT/ALT 12 U/L (5-49); TOTAL PROTEIN 6.9 gm/dL (6.0-8.0); TRIGLYCERIDES 77 mg/dl (<150)
[2024-08-06 09:05] LABS: POTASSIUM 4.7 mmol/L (3.4-5.1)
[2024-08-06 10:02] LABS: VITAMIN D, 25-HYDROXY 106.2 ng/mL (30-100)
== END | disposition home or self-care (01) ==
LOC: LAB 07:51
PROVIDERS: Student in an Organized Health Care Education/Training Program; ATTEND Internal Medicine
DX: Z41.8 Encounter for other procedures for purposes other than remedying health state (principal)

== ENCOUNTER → 2024-09-27 | Outpatient (CLI) | payer BC | END | disposition home or self-care (01) | LOC: MAMMO 02:48 | PROVIDERS: ATTEND Internal Medicine | DX: Z12.31 Encounter for screening mammogram for malignant neoplasm of breast (principal); R92.323 Mammographic fibroglandular density, bilateral breasts ==

== ENCOUNTER → 2025-03-28 | Outpatient (CLI) | payer BC ==
[2025-03-28 15:37] LABS: BUN 20 mg/dl (9-23)
== END | disposition home or self-care (01) ==
LOC: LAB 14:52
PROVIDERS: Student in an Organized Health Care Education/Training Program; ATTEND Internal Medicine
DX: M19.90 Unspecified osteoarthritis, unspecified site (principal)